=== PATIENT | female | born 1985 | race African-American/Black ===

== ENCOUNTER 2025-06-11 01:50 | Emergency (ER) | payer OTHER ==
[~2025-06-11] VITALS: Ht 167.6 cm; Wt 127.3 kg
[2025-06-11 03:33] LABS: Hematocrit 43.1 % (36.0-46.0); Hemoglobin 15.0 g/dL (12.2-16.2); Mean Corpuscular Hemoglobin 34.0 pg (28.0-32.0); Mean Corpuscular Volume 97.8 fL (80.0-100.0); Nucleated Red Blood Cells % 0.0 %
[2025-06-11 03:51] LABS: Albumin 4.3 g/dL (3.2-4.8); Anion Gap 7 (5-15); BUN/Creatinine Ratio 7.8 (10.0-20.0); Calcium 9.6 mg/dL (8.7-10.4); Carbon Dioxide 27 mmol/L (20-31); Chloride 104 mmol/L (98-107); Lipase 31 U/L (12-53); Potassium 3.7 mmol/L (3.5-5.1); Sodium 138 mmol/L (136-145); Total Protein 8.0 g/dL (5.7-8.2)
[2025-06-11 03:56] LABS: Alanine Aminotransferase 207 U/L (7-40); Alkaline Phosphatase 244 U/L (46-116); Bilirubin, Total 2.0 mg/dL (0.2-1.0); Blood Urea Nitrogen 6 mg/dL (9-23); Glucose 113 mg/dL (74-106)
--- NOTE | 2025-06-11 04:29 | ED.PDOC ---
General HPI Comments 40-year-old female complains of lower abdominal pain for the last 2 days. Unprovoked. No known modifying factors. Chief Complaint: Abdominal Pain Time Seen by MD: 02:30 Allergies: Coded Allergies: NO KNOWN ALLERGIES (Unverified , 06/11/25) Home Meds Active Scripts Hydrocodone-Acetaminophen (Hydrocodone Bitartrate/AC 5-325 mg) 1 Tab Tab, 1 TAB PO Q6HP PRN, #20 TAB Prov:FAVIAN JO MD 06/11/25 Gabapentin (Once-Daily) (Gabapentin) 300 Mg Tab, 300 MG PO Q6HP PRN, #60 TAB Prov:FAVIAN JO MD 06/11/25 Information Source: Patient Mode of Arrival: EMS Severity: Moderate Timing: Days Duration: Since onset Past Medical History PAST MEDICAL HISTORY: Denies Social History Smoker: Non-Smoker Alcohol: Denies ETOH Use Drugs: Denies Drug Use Constitutional: reports: fatigue, malaise Gastrointestinal: reports: abdominal pain Genitourinary: reports: flank pain Physical Exam General Appearance: Moderate Distress HEENT: Normal ENT Inspection, Pharynx Normal, TMs Normal Neck: Full Range of Motion, Non-Tender, Normal, Normal Inspection Respiratory: Chest Non-Tender, Lungs Clear, No Accessory Muscle Use, No Respiratory Distress, Normal Breath Sounds Cardiovascular: No Edema, No JVD, No Murmur, No Gallop, Normal Peripheral Pulses, Regular Rate/Rhythm Breast Exam: Deferred Gastrointestinal: No Organomegaly, Non Tender, No Pulsatile Mass, Normal Bowel Sounds, Soft Genitalia: Deferred Pelvic: Deferred Rectal: Deferred Extremities: No calf tenderness, Normal capillary refill, Normal inspection, Normal range of motion, Non-tender, No pedal edema Musculoskeletal : Apperance: Normal Neurologic: Alert, chemical lab supervisor II-XII nml as Tested, No Motor Deficits, Normal Affect, Normal Mood, No Sensory Deficits Cerebellar Function: Normal Reflexes: Normal Skin: Dry, Normal Color, Warm Lymphatic: No Adenopathy Was a procedure done? Was a procedure done?: No Differential Diagnosis Kidney stone (Female): AAA, , Appendicitis, Bowel obstruction, Cholelithiasis, DJD, Hepatitis, Pancreatitis, Pyelonephritis, Renal failure, Urinary obstruction, Urolithiasis, Other X-Ray, Labs, Meds, VS Vital Signs Date Time Temp Pulse Resp B/P (MAP) Pulse Ox O2 Delivery O2 Flow Rate FiO2 06/11/25 06:00 90 16 128/82 06/11/25 05:30 105 16 133/84 06/11/25 05:03 98 Room Air* 0 21 06/11/25 05:01 98.3 105 19 133/84 (100) 95 98.3 06/11/25 01:55 98.9 100 15 160/88 100 98.9 Lab Test 06/11/25 03:18 Range/Units White Blood Count 7.6 4.4-10.8 10^3/uL Red Blood Count 4.41 4.0-5.20 10^6/uL Hemoglobin 15.0 12.2-16.2 g/dL Hematocrit 43.1 36.0-46.0 % Mean Corpuscular Volume 97.8 80.0-100.0 fL Mean Corpuscular Hemoglobin 34.0 H 28.0-32.0 pg Mean Corpuscular Hemoglobin Concent 34.8 32.0-36.0 g/dL Red Cell Distribution Width 12.0 11.8-14.3 % Platelet Count 291 140-450 10^3/uL Mean Platelet Volume 8.2 6.9-10.8 fL Neutrophils (%) (Auto) 91.9 H 37.0-80.0 % Lymphocytes (%) (Auto) 5.3 L 10.0-50.0 % Monocytes (%) (Auto) 2.3 0.0-12.0 % Eosinophils (%) (Auto) 0.1 0.0-7.0 % Basophils (%) (Auto) 0.4 0.0-2.0 % Neutrophils # (Auto) 7.0 1.6-8.6 10 ^3/uL Lymphocytes # (Auto) 0.4 0.4-5.4 10 ^3/uL Monocytes # (Auto) 0.2 0-1.3 10 ^3/uL Eosinophils # (Auto) 0 0-0.8 10 ^3/uL Basophils # (Auto) 0 0-0.2 10 ^3/uL Nucleated Red Blood Cells 0.0 % Sodium Level 138 136-145 mmol/L Potassium Level 3.7 3.5-5.1 mmol/L Chloride Level 104 98-107 mmol/L Carbon Dioxide Level 27 20-31 mmol/L Anion Gap 7 5-15 Blood Urea Nitrogen 6 L 9-23 mg/dL Creatinine 0.77 0.550-1.02 mg/dL Glomerular Filtration Rate Calc 101 >90 mL/min BUN/Creatinine Ratio 7.8 L 10.0-20.0 Serum Glucose 113 H 74-106 mg/dL Calcium Level 9.6 8.7-10.4 mg/dL Total Bilirubin 2.0 H 0.2-1.0 mg/dL Aspartate Amino Transferase (AST) 630 H 13-40 U/L Alanine Aminotransferase (ALT) 207 H 7-40 U/L Alkaline Phosphatase 244 H 46-116 U/L Total Protein 8.0 5.7-8.2 g/dL Albumin 4.3 3.2-4.8 g/dL Lipase 31 12-53 U/L Current Medications Medications (Trade) Dose Ordered Sig/Monica Route Start Time Stop Time Status Last Admin Hydromorphone HCl (Dilaudid Injection) 1 mg ONCE ONCE IV 06/11/25 05:15 06/11/25 05:16 DC 06/11/25 05:30 Ondansetron HCl (Zofran) 4 mg ONCE ONCE IV 06/11/25 05:15 06/11/25 05:16 DC 06/11/25 05:30 Time of 1ST Reevaluation: 03:30 Reevaluation 1ST: Unchanged Patient Education/Counseling: Diagnosis, Treatment Family Education/Counseling: No Family Present SEPSIS Sepsis Screen Date sepsis recognized/suspect: Jun 11, 2025 Time Sepsis recognized/suspect: 0153 Recent Procedure: No On Antibiotic Therapy: No Respiratory Rate >20: No Heart Rate >90: Yes Temp<36 C (96.8 F) or >38.3 C: No SBP <90 or MAP <65 mmHG: No New Acute Mental Status Change: No Is the patient on CPAP, BIPAP,: No Physician Orders Urinalysis (06/11/25 02:55) Ct Ab Pel Wo Con-No Oral Or Iv (06/11/25 02:55) Vital Signs Date Time Temp Pulse Resp B/P (MAP) Pulse Ox O2 Delivery O2 Flow Rate FiO2 06/11/25 06:00 90 16 128/82 06/11/25 05:30 105 16 133/84 06/11/25 05:03 98 Room Air* 0 21 06/11/25 05:01 98.3 105 19 133/84 (100) 95 98.3 06/11/25 01:55 98.9 100 15 160/88 100 98.9 Laboratory Tests Test 06/11/25 03:18 White Blood Count 7.6 10^3/uL (4.4-10.8) Departure 1 Departure Time of Disposition: 05:30 Impression: Primary Impression: Abdominal pain Disposition: HOME / SELF CARE / HOMELESS Condition: Stable e-Prescriptions Hydrocodone-Acetaminophen (Hydrocodone Bitartrate/AC 5-325 mg) 1 Tab Tab 1 TAB PO Q6HP PRN, #20 TAB Prov: FAVIAN JO MD 06/11/25 Gabapentin (Once-Daily) (Gabapentin) 300 Mg Tab 300 MG PO Q6HP PRN, #60 TAB Prov: FAVIAN JO MD 06/11/25 Discharged With: Self Critical Care Note Critical Care Time?: No Stability Stability form required: No Heart Score Heart Score: Heart Score Response (Comments) Value History N/A 0 EKG N/A 0 Age N/A 0 Risk Factors N/A 0 Troponin N/A 0 Total 0 FAVIAN JO MD Jun 11, 2025 04:29
[2025-06-11 05:01] VITALS: TEMP 98.3
[2025-06-11 05:03] VITALS: O2SAT 98
--- NOTE | 2025-06-11 05:11 | DVH ---
Exam: CT CT AB PEL WO CON-NO ORAL OR IV History: flank pain Comparison Study: None Technique: Multidetector spiral CT of the abdomen was performed from lung bases to pubic symphysis. Imaging was performed without IV contrast. Axial, coronal and sagittal multiplanar reformats were obtained from the axial data set by the technologist. Radiation Dose : 1. Abdomen/Pelvis: CTDIvol 22.07 mGy, DLP 1288.25 mGy*cm. Findings: Evaluation of solid organs is limited due to lack of intravenous contrast use. Lung Bases: No acute or significant lung base finding. Normal heart size. No pleural or pericardial effusion. Liver: Hepatomegaly, 19.2 cm craniocaudal. No focal lesions. Gallbladder and Biliary Tree: Gallbladder is collapsed or surgically absent. Spleen: Unremarkable Pancreas: The pancreas is grossly normal in appearance. Adrenal Glands: Unremarkable Kidneys: No renal stones. No hydronephrosis. Bladder: Grossly unremarkable for degree of distention. Bowel: Small hiatal hernia. Moderate volume colonic stool. [id number]-di-[id number] diffuse colonic bowel wall thickening. The stomach is grossly normal in appearance. The small bowel is normal in caliber and distribution. The appendix is not visualized; however, no secondary findings of acute appendicitis kiera ntified. Ascites: Absent Lymphadenopathy: No mesenteric, retroperitoneal or periportal lymphadenopathy. Abdominal Wall and Mesentery: Unremarkable. Vasculature: The visualized abdominal aorta is normal in size and caliber. Evaluation of abdominal and pelvic vessels is limited due to lack of intravenous contrast. Pelvic Organs: Left adnexal cyst measures 3.7 cm. This is likely within normal limits. Musculoskeletal: No aggressive focal bony lesions, acute fractures or dislocation. IMPRESSION: [id number] diffuse colonic bowel wall thickening. This may be due to underdistention or colitis. Hepatomegaly. Radiation optimization: All CT scans at this facility use at least one of these dose optimization techniques: automated exposure control mA and/or kV adjustment per patient size (includes targeted exams where dose is matched to clinical indication) or iterative reconstruction.
[2025-06-11] MEDS: HYDROmorphone HCL 2 MG/ML VL/or syr IV ONE (05:30)
[2025-06-11] MEDS: ONDANSETRON HCL 4 MG/2 ML VIAL IV ONE (05:30)
[2025-06-11] MEDS ORDERED: HYDR-4902 PO (05:57)
[2025-06-11] MEDS ORDERED: GABA300T4 PO (05:57)
[2025-06-11 06:00] VITALS: BP 128/82; PULSE 90; RESP 16
== END 2025-06-11 06:20 | disposition home or self-care (01) ==
LOC: EDBD 01:50 → ER 01:50
DX: R10.30 Lower abdominal pain, unspecified (principal); Z79.899 Other long term (current) drug therapy
CPT/HCPCS: 36415; 74176; 80053; 83690; 85025; 96374; 96375; 99285; J1171; J2405